=== PATIENT | female | born 1950 | race Caucasian/White ===

== ENCOUNTER → 2017-04-07 | Outpatient (CLI) | payer MEDICARE, OTHER ==
[~2017-04-07] MED LIST: ESTR1TAB3 PO; IOHEXOL 300 MG/ML 100ML VIAL. IV ONE; VENL37.5 PO
--- NOTE | 2017-04-07 11:11 | KCIC ---
PROCEDURE CT abdomen and pelvis with and without contrast. HISTORY Hematuria. Urinary hesitation. TECHNIQUE Precontrast imaging through the abdomen and pelvis was performed. Portovenous phase imaging through the kidneys was performed. Delayed imaging through the abdomen and pelvis was performed. Maximum intensity projection re-formatted images for the delayed series are provided. The patient received 95 milliliters of intravenous Omnipaque 300 without complication. One or more of the following individualized dose reduction techniques were utilized for this exam: 1. Automated exposure control. 2. Adjustment of the mA and/or kV according to patient's size. 3. Use of iterative reconstruction technique. COMPARISON None. FINDINGS Precontrast imaging demonstrates no obstructing or nonobstructing renal calculus. Neither ureter is dilated. Kidneys are symmetrically perfused. There is a simple cyst in the lower pole of the right kidney measuring 2 centimeters. There is no filling defect in either ureter. Both ureters are well opacified. There is no bladder filling defect, bladder moderately distended. There is dependent atelectasis. There is no pleural effusion. The heart is not enlarged. Liver, gallbladder, spleen, pancreas, and adrenals are unremarkable. Aorta is normal caliber. Lack of oral contrast limits evaluation of bowel. There is no small bowel obstruction or mural thickening. There are a few diverticula in the colon but no findings of a diverticulitis. Uterus is grossly unremarkable. There is no adnexal mass or free pelvic fluid. Bony structures are intact. IMPRESSION 1. Negative for urothelial mass. No obstructing or nonobstructing renal calculus. 2. Simple cyst right kidney. 3. A few diverticula in the colon without findings of a diverticulitis. Electronically signed by: Billy Marinelli MD (April 07, 2017 11:10:15)
== END | disposition home or self-care (01) ==
LOC: KCIC CT 08:48
PROVIDERS: ATTEND Urology
DX: N28.1 Cyst of kidney, acquired (principal)
CPT/HCPCS: 74178; 82565; Q9967